=== PATIENT | female | born 1935 | race Caucasian/White ===

== ENCOUNTER 2016-08-11 14:00 | Emergency (ER) | payer OTHER, MEDICARE, BC ==
[2016-08-11] MEDS ORDERED: LIDOCAINE HCL 2% (VISCOUS) 20 ML SOL ONE (14:19)
[2016-08-11 14:26] VITALS: RESP 16; TEMP 98.6
[2016-08-11 14:46] VITALS: BP 140/55; PULSE 87; O2SAT 94
== END 2016-08-11 14:37 | disposition home or self-care (01) | DRG 605 ==
LOC: ED 14:00
DX: S41.111A Laceration without foreign body of right upper arm, initial encounter (principal); W01.0XXA Fall on same level from slipping, tripping and stumbling without subsequent striking against object, initial encounter
CPT/HCPCS: 99282